=== PATIENT | female | born 1945 | race Caucasian/White ===

== ENCOUNTER 2024-05-13 10:32 | Emergency (ER) | payer OTHER, MEDICARE, MEDICAID ==
[~2024-05-13] VITALS: Ht 152.4 cm; Wt 60.2 kg
[2024-05-13 10:44] VITALS: BP 117/65; PULSE 79; RESP 15; O2SAT 98
[2024-05-13] MEDS ORDERED: AZIT250T82 PO (12:33)
[2024-05-13 12:42] VITALS: TEMP 97.4
== END 2024-05-13 12:44 | disposition home or self-care (01) ==
LOC: ER 10:33
DX: J01.11 Acute recurrent frontal sinusitis (principal); Z88.5 Allergy status to narcotic agent
CPT/HCPCS: 99283